=== PATIENT | male | born 1980 | race Hispanic/Latino ===

== ENCOUNTER 2017-12-25 13:42 | Inpatient (IN) | payer OTHER ==
[~2017-12-25] VITALS: Ht 182.9 cm; Wt 93.5 kg
[2017-12-25 14:27] LABS: BASOPHILS % 0.3 % (0.0-1.0); EOSINOPHILS # (AUTO) 0.1 (0.0-0.4); EOSINOPHILS % 0.8 % (0.0-6.0); HEMATOCRIT 44.1 % (38.2-49.6); HEMOGLOBIN 15.2 g/dL (14.0-18.0); LYMPHOCYTES # (AUTO) 1.9 (1.0-3.2); LYMPHOCYTES % 16.8 % (18.0-39.1); MEAN CORPUSCULAR HEMOGLOBIN 29.5 pg (28-32); MEAN CORPUSCULAR HGB CONC 34.5 g/dL (31-35); MEAN CORPUSCULAR VOLUME 85.5 fL (81-99); MONOCYTES # (AUTO) 0.7 (0.2-0.8); MONOCYTES % 6.4 % (4.4-11.3); NEUTROPHILS # (AUTO) 8.7 (2.1-6.9); NEUTROPHILS % 75.3 % (38.7-80.0); PLATELET COUNT 244 x10e3/uL (140-360); RED BLOOD COUNT 5.16 x10e6/uL (4.3-5.7); RED CELL DISTRIBUTION WIDTH 13.2 % (11.7-14.4)
[2017-12-25 14:31] LABS: INR 1.02; PARTIAL THROMBOPLASTIN TIME 27.3 seconds (23.8-35.5); PROTHROMBIN TIME 12.6 seconds (11.9-14.5)
[2017-12-25 14:38] LABS: ALANINE AMINOTRANSFERASE 24 IU/L (0-55); ALBUMIN 3.9 g/dL (3.5-5.0); ALBUMIN/GLOBULIN RATIO 1.1 (0.8-2.0); ALKALINE PHOSPHATASE 61 IU/L (40-150); ANION GAP 12.8 mmol/L (8-16); BLOOD UREA NITROGEN 15 mg/dL (7-26); BUN/CREATININE RATIO 12 (6-25); CALCIUM 9.5 mg/dL (8.4-10.2); CARBON DIOXIDE 26 mmol/L (22-29); CHLORIDE 105 mmol/L (98-107); CREATINE KINASE 1161 IU/L (30-200); CREATININE, SERUM 1.21 mg/dL (0.72-1.25); EST GLOMERULAR FILTRATION RATE > 60 ML/MIN (60-); GLUCOSE 112 mg/dL (74-118); POTASSIUM 3.8 mmol/L (3.5-5.1); SODIUM 140 mmol/L (136-145)
--- NOTE | 2017-12-25 15:21 | Diagnostic Imaging Report ---
PROCEDURE: A single AP view of the chest. COMPARISON: None. INDICATIONS: CHEST PAIN, HIGH BLOOD PRESSURE, DIZZINESS FINDINGS: Lines/tubes: None. Lungs: The lungs are well inflated and clear. There is no evidence of pneumonia or pulmonary edema. Pleura: There is no pleural effusion or pneumothorax. Heart and mediastinum: The heart and the mediastinum are unremarkable. Bones: No acute bony abnormality. IMPRESSION: 1. No acute cardiopulmonary disease. Wagner Hebert M.D. Dictated by: Wagner Hebert M.D. on 12/25/2017 at 15:25 Electronically approved by: Wagner Hebert M.D. on 12/25/2017 at 15:25
[2017-12-25] MEDS ORDERED: SODIUM CHLORIDE 0.9% 1000ML 1,000 ML IV STA ×2 (15:30→16:20)
[2017-12-25] MEDS ORDERED: KETOROLAC TROMETHAMINE 30 MG/ML VIAL IV STA (15:30)
[2017-12-25] MEDS ORDERED: METOPROLOL SUCCINATE 50 MG TAB XL PO STA (15:42)
--- NOTE | 2017-12-25 16:14 | Diagnostic Imaging Report ---
History: Headache Comparison studies: None Technique: Axial images were obtained from the skull base to the vertex. Coronal and sagittal reconstructions obtained from the axial data. Findings: Scalp/skull: No abnormalities. No fractures, blastic or lytic lesions. Extra-axial spaces: No masses. No fluid collections. Brain sulci: Appropriate for age. Ventricles: Normal in size and configuration. No hydrocephalus. Parenchyma: No abnormal densities. No masses, hemorrhage, acute or chronic cortical vascular insults. Sellar/suprasellar region: No abnormalities Craniocervical junction: Patent foramen magnum. No Chiari one malformation. Incidental focal mucosal thickening in the left maxillary sinus. IMPRESSION: No intracranial abnormalities. Signed by: Dr. Poncho Darling M.D. on 12/25/2017 4:10 PM
[2017-12-25 16:15] LABS: BILIRUBIN,URINE NEGATIVE (NEGATIVE); CLARITY,URINE CLEAR (CLEAR); COLOR,URINE YELLOW (YELLOW); KETONES,URINE NEGATIVE (NEGATIVE); LEUKOCYTE ESTERASE ,URINE NEGATIVE (NEGATIVE); NITRITE,URINE NEGATIVE (NEGATIVE); PROTEIN,URINE DIPSTICK NEGATIVE (NEGATIVE); URINE UROBILINOGEN 0.2 mg/dL (0.2 - 1)
[2017-12-25 16:19] LABS: PHENCYCLIDINE SCREEN,URINE NEGATIVE (NEGATIVE)
[2017-12-25 16:20] LABS: AMPHETAMINES SCREEN,URINE NEGATIVE (NEGATIVE); BENZODIAZEPINES SCREEN,URINE NEGATIVE (NEGATIVE)
[2017-12-25] MEDS ORDERED: HYDROCODONE/APAP 10MG-325MG TAB PO STA (17:57)
[2017-12-25] MEDS ORDERED: CLONIDINE HCL 0.1 MG TAB PO STA (17:57)
[2017-12-25] MEDS ORDERED: METOPROLOL TART50 MG PO (18:10)
[2017-12-25] MEDS ORDERED: HYDROMORPHONE 20MG/ NS 100ML IV STA (19:04)
[2017-12-25] MEDS ORDERED: HYDROMORPHONE 1MG/1ML INJ IV SCH (19:15)
[2017-12-25] MEDS ORDERED: ONDANSETRON HCL INJ 2 MG/ML VIAL IV PRN (19:15)
[2017-12-25] MEDS ORDERED: ASPIRIN 81 MG CHEW TAB PO ONE (19:15)
[2017-12-25 19:47] LABS: CREATINE KINASE 811 IU/L (30-200)
[2017-12-25] MEDS: HYDRALAZINE HCL 20 MG/ML VIAL IV PRN (20:15)
[2017-12-25] MEDS: HYDROMORPHONE 1MG/1ML INJ IV PRN (20:41)
[2017-12-25 21:22] VITALS: BP 148/104
[2017-12-25] MEDS: SODIUM CHLORIDE 0.9% 1000ML 1,000 ML IV SCH (21:56)
[2017-12-25 21:58] VITALS: BP 144/103
[2017-12-25] MEDS ORDERED: ACETAMINOPHEN 325 MG TAB PO PRN (22:15)
[2017-12-25 22:43] VITALS: BP 144/103
[2017-12-26] MEDS: SODIUM CHLORIDE 0.9% 1000ML 1,000 ML IV SCH ×3 (03:45→12:04)
[2017-12-26 04:00] VITALS: BP 128/86
[2017-12-26 04:08] LABS: CREATINE KINASE 628 IU/L (30-200)
[2017-12-26 05:47] LABS: BASOPHILS % 0.4 % (0.0-1.0); EOSINOPHILS # (AUTO) 0.2 (0.0-0.4); EOSINOPHILS % 1.5 % (0.0-6.0); LYMPHOCYTES # (AUTO) 2.1 (1.0-3.2); LYMPHOCYTES % 20.9 % (18.0-39.1); MEAN CORPUSCULAR HEMOGLOBIN 28.9 pg (28-32); MEAN CORPUSCULAR HGB CONC 33.3 g/dL (31-35); MEAN CORPUSCULAR VOLUME 86.8 fL (81-99); MONOCYTES # (AUTO) 0.7 (0.2-0.8); MONOCYTES % 6.9 % (4.4-11.3); NEUTROPHILS % 69.8 % (38.7-80.0); PLATELET COUNT 211 x10e3/uL (140-360); RED BLOOD COUNT 4.84 x10e6/uL (4.3-5.7); RED CELL DISTRIBUTION WIDTH 13.6 % (11.7-14.4)
[2017-12-26 06:12] LABS: ALANINE AMINOTRANSFERASE 17 IU/L (0-55); ALBUMIN 3.2 g/dL (3.5-5.0); ALBUMIN/GLOBULIN RATIO 1.1 (0.8-2.0); ALKALINE PHOSPHATASE 48 IU/L (40-150); BLOOD UREA NITROGEN 14 mg/dL (7-26); BUN/CREATININE RATIO 17 (6-25); CALCIUM 8.8 mg/dL (8.4-10.2); CARBON DIOXIDE 23 mmol/L (22-29); CHLORIDE 109 mmol/L (98-107); CREATININE, SERUM 0.84 mg/dL (0.72-1.25); EST GLOMERULAR FILTRATION RATE > 60 ML/MIN (60-); GLUCOSE 101 mg/dL (74-118); SODIUM 138 mmol/L (136-145)
[2017-12-26 07:13] VITALS: BP 148/104
[2017-12-26] MEDS: HYDROMORPHONE 1MG/1ML INJ IV PRN ×4 (07:38→16:41)
[2017-12-26 08:13] VITALS: BP 148/104
[2017-12-26] MEDS: METOPROLOL TARTRATE 50 MG TAB PO SCH ×2 (08:16→16:31)
[2017-12-26 09:29] LABS: CHOL/HDL RATIO 3.4 (3.9-4.7)
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
--- NOTE | 2017-12-26 11:41 | Diagnostic Imaging Report ---
PROCEDURE: CT CHEST WITHOUT CONTRAST CT scan of the chest WITHOUT intravenous contrast, using standard protocol. TECHNIQUE: The chest was scanned utilizing a multidetector helical scanner from the apex to the level of the adrenal glands. No IV contrast was administered because of referring physician request. Coronal and sagittal multiplanar reformations were obtained. COMPARISON: Chest x-ray 12/25/2017. INDICATIONS: SHORT OF BREATH, CHEST PAIN FINDINGS: Lines/tubes: None. Lungs and Airways: Trace subsegmental atelectasis in the dependent portion of the right lower lobe. The lungs and airways are otherwise unremarkable. No consolidation, fibrotic change, or bronchiectasis. Trachea, mainstem bronchi, and central lobar and segmental bronchi are patent, without filling defect. Pleura: No pleural effusion or pneumothorax. Heart and mediastinum: The visualized portions of the thyroid gland show no discrete nodule. There is no ectasia or aneurysmal dilatation of the thoracic aorta. Incidental note of a common origin of the innominate and left common carotid artery from the aortic arch. Main pulmonary artery is of normal caliber. No axillary, hilar, or mediastinal lymphadenopathy. No pericardial effusion. Normal heart size. Soft tissues: No focal soft tissue abnormalities. Abdomen: Visualized portions of the liver, gallbladder, spleen, pancreas, adrenals, and kidneys show no discrete abnormality. Bones: No osseous destructive lesions. IMPRESSION: Subsegmental atelectasis in the right lower lobe. Otherwise unremarkable noncontrast chest CT. Dictated by: Ad Vickers M.D. on 12/26/2017 at 11:45 Electronically approved by: Ad Vickers M.D. on 12/26/2017 at 11:45
[2017-12-26 12:10] LABS: CREATINE KINASE 591 IU/L (30-200)
[2017-12-26] MEDS ORDERED: METHYLPREDNISOLONE SOD SUCC 125 MG/2ML VIAL IV ONE (12:30)
[2017-12-26] MEDS ORDERED: PROMETHAZINE 25MG/ NS 50ML (IV) IV ONE (12:30)
[2017-12-26] MEDS ORDERED: VALPROATE SOD INJ 500 MG in SODIUM CHLORIDE 0.9% 100 ML 100 ML IV SCH (12:30)
[2017-12-26 12:57] VITALS: BP 157/111
--- NOTE | 2017-12-26 14:07 | Consultation ---
DATE OF CONSULTATION: December 26, 2017 NEUROLOGY CONSULTATION HISTORY OF PRESENT ILLNESS: Mr. Molina is a 37-year-old, [id number] man with past medical history significant for hypertension and occasional migraines who presented to the emergency center at [facility] on December 25, 2017, with multiple symptoms, including: Headache, blurred vision affecting the right eye with black spots, and numbness of the left arm. Mr. Molina describes his headache as follows: The pain is located behind the right eye, across the forehead, and near the occiput. The pain is described as combination of pressure and throbbing and is rated 10 out of 10. Associated with the headache are photophobia, dizziness which is further described as lightheadedness, mild confusion which is further described as difficulty with concentration, blurred vision affecting the right eye with black spots, and numbness over the left arm. Mr. Molina reports experiencing similar headaches in the past, especially with elevated blood pressures. The patient does endorse a history of occasional migraines not associated with elevations in blood pressure. The patient has a sister who has migraines as well. As stated above, the patient presented to the emergency center at [facility] on December 25, 2017, with the above-described symptoms as well as chest pain, low back pain, and elevated blood pressure. Upon arrival in the emergency center, the patient was afebrile with a blood pressure of 183/132 mmHg and pulse of 103 beats per minute. His neurological examination is documented as follows: Oriented times 3. No motor deficits. A CT of the brain without contrast was performed and did not show evidence of recent large territorial ischemia or hemorrhage. Mr. Molina was admitted to [facility] under observation status for further evaluation and treatment of symptoms. REVIEW OF SYSTEMS: Chest pain, confusion, blurred vision affecting the right eye, low back pain, headache, photophobia, dizziness. Otherwise, a 12-point review of systems is negative. 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 PAST SURGICAL HISTORY: Resection of a Winchester cyst behind the right knee. PAST HOSPITALIZATIONS: Surgeries/procedures as listed, hospitalized for elevations in blood pressure 3 times. FAMILY HISTORY: The patient's paternal and maternal grandparents are . Their medical histories are unknown. The patient's father is from colon cancer. Mr. Molina' mother is alive. She has high blood pressure and diabetes mellitus. The patient has 4 siblings, all of whom are alive. One sister had gestational diabetes mellitus. A 2nd sister has migraines. A brother has diabetes mellitus. The patient has 2 daughters and 1 son. All of his children are alive and healthy. SOCIAL HISTORY: Mr. Molina is legally from his . He graduated high school and attended some college. 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 Patient reports prior history of tobacco use, but quit smoking cigarettes approximately 5 years ago. The patient will drink an occasional whiskey or 2 beers. The patient does report a history of marijuana use. He stopped smoking marijuana approximately 2 to 3 months ago because his employer performs random drug testing. HOME MEDICATIONS: Metoprolol tartrate 50 mg by mouth daily. ALLERGIES: MORPHINE CAUSES NAUSEA. NO KNOWN FOOD ALLERGIES. NO KNOWN ALLERGY TO LATEX. NO KNOWN ALLERGIES TO IODINE OR OTHER CONTRAST MATERIALS. PHYSICAL EXAMINATION VITAL SIGNS: Height 72 inches, weight 205 pounds, BMI 27.8 kg per meter squared. Blood pressure 148/104 mmHg. Pulse 58 beats per minute. Respiratory rate 18 breaths per minute. Oxygen saturation 97% on room air. GENERAL: Patient is awake and alert, does not appear distressed. HEENT: Normocephalic, atraumatic. Pupils are equal, round and reactive to light. Moist mucous membranes. NECK: Supple. No appreciable thyromegaly. No appreciable carotid bruits. CARDIOVASCULAR: S1, S2, regular rate and rhythm. No murmurs, rubs or gallops. RESPIRATORY: Clear to auscultation bilaterally. No wheezes, rhonchi or rales. EXTREMITIES: The skin is warm and dry. No clubbing, cyanosis, or edema. The posterior tibial and dorsalis pedis pulses are 2+ and symmetric. SKIN: No rashes or lesions. NEUROLOGIC EXAMINATION MEMORY/ATTENTION: The patient is awake and alert, oriented to person, place, time and situation. CRANIAL NERVES: Cranial nerve I: Not tested. Cranial nerves II, III, IV, and : Pupils are equal and round, react briskly to light (from 4 mm to 2 mm). Extraocular movements intact. No nystagmus. Cranial nerve V: Sensation to light touch and pinprick is intact in the bilateral V1 through V3 distributions. Strength of the temporalis and masseter muscles is within normal limits. Cranial nerve VII: The face is symmetric as are all facial movements. Strength is within normal limits. Cranial nerve VIII: Hearing is intact to finger rub bilaterally. Cranial nerves IX and X: The soft palate elevates equally and symmetrically. Cranial nerve XI: Normal strength of the bilateral sternocleidomastoid and trapezius muscles. Cranial nerve XII: The tongue protrudes midline and moves symmetrically from side to side. STRENGTH: Bulk is normal. Strength is 5/5 in the bilateral deltoids, biceps, triceps, wrist flexors and extensors, finger flexors and extensors, intrinsic hand muscles, hip flexors, knee flexors and extensors, ankle dorsiflexion and plantar flexion, and intrinsic foot muscles. Tone is normal. DTRs: Deep tendon reflexes are 1+ and symmetric at the triceps, biceps, brachioradialis, patellas and Achilles. Plantar responses are flexor bilaterally. SENSATION: Sensation is intact to light touch and pinprick in both arms and both legs. CEREBELLAR: Qjttld-wulo-frtuzw and heel-david movements are intact without dysmetria or other impairment. GAIT: Deferred. SPEECH: Spontaneous speech is normal without appreciable dysarthria or aphasia. Repetition is intact. INVOLUNTARY MOVEMENTS: None. PRONATOR DRIFT: None. LABORATORY DATA: Sodium 138, potassium 4.0, chloride 109, carbon dioxide 23, anion gap 10.0. BUN 14, creatinine 0.84, estimated GFR greater than 60, NBN-ok-zfuozihcfd ratio 17. Glucose 101, calcium 8.8. Total bilirubin 0.5, AST 18, ALT 17, alkaline phosphatase 48. Total protein 6.0, albumin 3.2, globulin 2.8, dfivlgg-zi-ttnhxwfh ratio 1.1. Creatinine kinase 1161, 811, 628, 591. CK-MB 1.50, 1.10, 1.00, 1.10. Troponin I less than 0.001, less than 0.001, less than 0.001, less than 0.001. Total cholesterol 131,triglycerides 104, LDL 71, HDL 39. The CBC with differential and platelets reveals a white blood cell count of 10.08 with a normal differential. Hemoglobin and hematocrit are 14.0 and 42.0, respectively. The platelet count is 211. PT 12.6, INR 1.02, PTT 27.3. D-dimer quantitative 255. Urinalysis is unremarkable. Urine drug screen is negative. DIAGNOSTIC STUDIES 1. Chest x-ray, 12/25/2017: No acute cardiopulmonary disease. 2. CT of the brain without contrast, 12/25/2017: On my review, there is no evidence of recent large territorial ischemia, hemorrhage, mass, or mass effect. Cerebral volumes are appropriate for age. 3. Chest CT, 12/26/2017: Subsegmental atelectasis in the right lower lobe. Otherwise, unremarkable noncontrast chest CT. ASSESSMENT AND PLAN: Mr. Molina is a 37-year-old, [id number]-wwhp-dbcyywdm man with past medical history significant for hypertension and occasional migraines, admitted to [facility] on December 25, 2017, with multiple symptoms, including: Severe headache with vascular features, blurred vision affecting the right eye with dark spots, and numbness of the left arm. At present, the patient's neurological examination is nonfocal. His laboratory data and other diagnostic studies have been reviewed and are documented above. Based on description of symptoms provided by the patient, I strongly suspect the patient is experiencing a complex migraine with status migrainosus. RECOMMENDATIONS 1. MRI of the brain without contrast. 2. Promethazine 25 mg IV once. 3. Methylprednisolone 125 mg IV once. 4. Valproate 500 mg IV once. 5. These 3 medications, when given in combination, are often an effective treatment for status migrainosus. All 3 medications may be given again in 6 hours if needed. 6. The patient reports a prior history of cerebral artery aneurysm with the aneurysm reportedly being located near the right eye. An MRA of the brain without contrast will be ordered for further evaluation. 7. Defer treatment of the remaining medical comorbidities to the primary and other services. Thank you for this consultation. I will continue to follow this patient while he remains in the hospital. Time spent: 50 minutes. Job#: [id number] RUDDY MURGUIA
[2017-12-26] MEDS: AMLODIPINE BESYLATE 5 MG TAB PO SCH ×2 (14:39→16:32)
[2017-12-26] MEDS: VALPROATE SOD INJ 500 MG in SODIUM CHLORIDE 0.9% 100 ML 100 ML IV SCH (15:19)
[2017-12-26 16:38] VITALS: BP 161/110
--- NOTE | 2017-12-26 16:58 | Diagnostic Imaging Report ---
Exams: Brain and intracranial MRA without IV contrast History: 37-year-old male with right eye vision loss and headaches Comparison studies: Head CT, 12/25/2017 Technique: Brain: Pre-contrast: Sagittal T2; axial T2, T1-IR, MPGR, DWI, axial and coronal T2 flair 3-D etyl-by-qbhqra intracranial MRA with sagittal, coronal and 3-D MIP reformats. Intravenous contrast: None Findings: Brain: Scalp: No abnormal signal. No masses. Bone marrow: Normal in signal intensity. Brain sulci: Normal. Ventricles: Normal in size. No hydrocephalus. Extra axial spaces: No mass, no fluid collection. Parenchyma: No abnormal signal intensities. No masses, hemorrhage, acute or chronic vascular insults. Suprasellar region: Mildly expanded, mostly CSF filled sella. Craniocervical junction: No abnormalities. Patent foramen magnum. No Chiari one malformation Vessels: Normal flow-voids in the arteries and sinuses. Incidental: * T2 hyperintense mucosal thickening in the maxillary sinuses. Small nonspecific secretions and left max a sinus could be correlated for acute sinusitis. * Tortuosity of the optic nerve intraorbital segments bilaterally with questionable mild flattening of the posterior sclera near the optic nerve sheath insertions. Intracranial MRA: Internal carotid arteries: Patent, no flow abnormalities. Anterior cervical arteries: Patent, no flow abnormalities in the A1 and proximal A2 segments. Middle cerebral arteries: Patent, no flow abnormalities in the M1 and included M2 segments. Vertebral arteries: Patent, no flow abnormalities in the included segments. Basilar artery: Patent, no flow abnormalities. Posterior cerebral artery: Patent, no abnormalities. Anatomical variants: Acom: Patent. Pcom: Patent bilaterally. Vertebral arteries:Codominant IMPRESSION: Brain MRI: 1. No acute intracranial abnormality. 2. Partially empty sella with bilateral optic nerve sheath tortuosity. These findings can be seen with idiopathic intracranial hypertension in the appropriate clinical setting. Correlation with lumbar puncture and CSF opening pressure could further evaluate. 3. Incidental inflammatory changes in the left maxillary sinus. Intracranial MRA: No abnormalities. This preliminary report was completed by the neuroradiology fellow Dr. Gene Manning. Signed by: Dr. Ad Mart M.D. on 12/26/2017 5:33 PM
--- NOTE | 2017-12-26 17:36 | Diagnostic Imaging Report ---
CORRECTION Corrected on: 12/26/2017; Dictated by: Jose Daniel Landrum M.D. on 12/26/2017 at 17:42 Electronically approved by: Jose Daniel Landrum M.D. on 12/26/2017 at 17:42 PROCEDURE: RENAL DOPPLER ULTRASOUND COMPARISON:None. INDICATIONS:Hypertension FINDINGS:The Multiple sagittal and axial images of the right and left kidneys were obtained. RIGHT KIDNEY: The right kidney measures 11.2 cm. The cortical thickness is 1.9 cm. The right kidney has normal echogenicity. There are no masses, hydronephrosis or calculi. The right main renal artery PSV is 41.8, 44.4, 41.8 and 37.8 cm/sec at the ostium, proximal, mid, and distal segments, respectively. The highest right segmental artery PSV is 34.1, 37.8 and 40.7 cm/sec at the superior, mid, and inferior aspects, respectively. . LEFT KIDNEY: The left kidney measures 11.1 cm. The cortical thickness is 2.2 cm. The left kidney has normal echogenicity. There are no masses, hydronephrosis or calculi. The left main renal artery PSV is 50.1, 48.9, 41.1 and 52.6 cm/sec at the ostium, proximal, mid, and distal segments, respectively. The highest left segmental artery PSV is 56.8, 50.1 and 45.8 cm/sec at the superior, mid, and inferior aspects, respectively. The abdominal aorta PSV is 70.2, 73.9 and 83.0 cm/sec at the proximal, celiac/SMA, and distal aspects, respectively. The right renal artery/aorta ratio is 0.5. The left renal artery/aorta ratio is 0.6. The right and left renal veins are patent. IVC is patent. The bladder shows no focal lesions. Bilateral ureteral jets are identified. A small amount of debris is noted in the dependent portion of the bladder CONCLUSION: 1. Unremarkable renal ultrasound. 2. No sonographic evidence for renal artery stenosis. 3. Small amount of debris noted in the dependent portion of the bladder. Correlate with urinalysis. Jose Daniel Landrum M.D. Dictated by: Jose Daniel Landrum M.D. on 12/26/2017 at 17:39 Electronically approved by: Jose Daniel Landrum M.D. on 12/26/2017 at 17:39
--- NOTE | 2017-12-26 17:37 | Diagnostic Imaging Report ---
PROCEDURE:US RETROPERITONEAL ( KIDNEY ). COMPARISON:None. INDICATIONS:Hypertension CONCLUSION: Please see previously dictated report under renal Doppler performed. Same date. Jose Daniel Landrum M.D. Dictated by: Jose Daniel Landrum M.D. on 12/26/2017 at 17:40 Electronically approved by: Jose Daniel Landrum M.D. on 12/26/2017 at 17:40
[2017-12-26 20:04] VITALS: BP 151/95
[2017-12-27] VITALS (8 sets, daily range): BP systolic 143–175; BP diastolic 95–115
[2017-12-27] MEDS: SODIUM CHLORIDE 0.9% 1000ML 1,000 ML IV SCH ×5 (00:46→23:32)
[2017-12-27] MEDS: VALPROATE SOD INJ 500 MG in SODIUM CHLORIDE 0.9% 100 ML 100 ML IV SCH ×3 (03:30→23:50)
[2017-12-27 06:18] LABS: BASOPHILS % 0.1 % (0.0-1.0); HEMATOCRIT 46.6 % (38.2-49.6); LYMPHOCYTES # (AUTO) 1.2 (1.0-3.2); LYMPHOCYTES % 6.4 % (18.0-39.1); MEAN CORPUSCULAR HEMOGLOBIN 29.5 pg (28-32); MEAN CORPUSCULAR HGB CONC 34.3 g/dL (31-35); MEAN CORPUSCULAR VOLUME 85.8 fL (81-99); MONOCYTES # (AUTO) 0.4 (0.2-0.8); MONOCYTES % 2.2 % (4.4-11.3); NEUTROPHILS % 90.8 % (38.7-80.0); PLATELET COUNT 260 x10e3/uL (140-360); RED BLOOD COUNT 5.43 x10e6/uL (4.3-5.7); RED CELL DISTRIBUTION WIDTH 13.2 % (11.7-14.4)
[2017-12-27 07:04] LABS: ANION GAP 12.5 mmol/L (8-16); BLOOD UREA NITROGEN 14 mg/dL (7-26); BUN/CREATININE RATIO 14 (6-25); CALCIUM 9.9 mg/dL (8.4-10.2); CARBON DIOXIDE 25 mmol/L (22-29); CHLORIDE 106 mmol/L (98-107); CREATININE, SERUM 0.98 mg/dL (0.72-1.25); EST GLOMERULAR FILTRATION RATE > 60 ML/MIN (60-); GLUCOSE 130 mg/dL (74-118); POTASSIUM 4.5 mmol/L (3.5-5.1); SODIUM 139 mmol/L (136-145)
[2017-12-27] MEDS: METOPROLOL TARTRATE 50 MG TAB PO SCH (08:45)
[2017-12-27] MEDS: HYDROMORPHONE 1MG/1ML INJ IV PRN ×3 (08:46→23:50)
[2017-12-27] MEDS: AMLODIPINE BESYLATE 5 MG TAB PO SCH (08:46)
[2017-12-27] MEDS: SPIRONOLACTONE 25 MG TAB PO SCH (13:34)
[2017-12-27] MEDS: HYDROCHLOROTHIAZIDE 25 MG TAB PO SCH (13:34)
[2017-12-27] MEDS: LISINOPRIL 10 MG TAB PO SCH ×2 (13:55→17:54)
[2017-12-27] MEDS: LEVOFLOXACIN 500MG/D5W 100ML 100 ML IV SCH (13:55)
--- NOTE | 2017-12-27 15:55 | Diagnostic Imaging Report ---
PROCEDURE:X-RAY UNILATERAL RIBS WITH CHEST X-RAY COMPARISON:Chest CT 12/26/2017, chest radiograph 12/25/2017 INDICATIONS:LEFT RIB PAIN FOR FEW DAYS, NO TRAUMA FINDINGS: BONES: Normal mineralization. No acute fracture or dislocation. Joint spaces are within normal limits. SOFT TISSUES: Negative. OTHER: Lungs are clear. No pleural effusions or pneumothorax. Cardiac mediastinal silhouette is within normal limits. CONCLUSION: No acute osseous or cardiopulmonary abnormalities. Dictated by: Landon Nunez M.D. on 12/27/2017 at 15:58 Electronically approved by: Landon Nunez M.D. on 12/27/2017 at 15:58
[2017-12-27] MEDS ORDERED: METOPROLOL SUCCINATE 50 MG TAB XL PO SCH ×2 (17:00→21:00)
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
[2017-12-27] MEDS: PROMETHAZINE 25MG/ NS 50ML (IV) IV SCH ×2 (17:53→23:50)
[2017-12-27] MEDS: METHYLPREDNISOLONE SOD SUCC 125 MG/2ML VIAL IV SCH ×2 (17:54→23:50)
[2017-12-28] VITALS (9 sets, daily range): BP systolic 142–191; BP diastolic 96–131
[2017-12-28] MEDS: SODIUM CHLORIDE 0.9% 1000ML 1,000 ML IV SCH ×2 (04:21→13:57)
[2017-12-28] MEDS: METOPROLOL SUCCINATE 50 MG TAB XL PO SCH ×3 (05:43→21:14)
[2017-12-28] MEDS: HYDROCHLOROTHIAZIDE 25 MG TAB PO SCH (08:56)
[2017-12-28] MEDS: SPIRONOLACTONE 25 MG TAB PO SCH (08:56)
[2017-12-28] MEDS: LISINOPRIL 10 MG TAB PO SCH ×2 (08:57→17:08)
[2017-12-28] MEDS: HYDROMORPHONE 1MG/1ML INJ IV PRN ×2 (09:43→15:51)
[2017-12-28] MEDS: LEVOFLOXACIN 500MG/D5W 100ML 100 ML IV SCH (13:10)
[2017-12-28] MEDS ORDERED: CLONIDINE HCL 0.2 MG/24 HR 1 EA PATCH TOP SCH (14:45)
[2017-12-28] MEDS: KETOROLAC TROMETHAMINE 30 MG/ML VIAL IV SCH ×2 (18:42→23:26)
[2017-12-28] MEDS: METOCLOPRAMIDE HCL 10 MG/2ML VIAL IV SCH ×2 (18:42→23:26)
[2017-12-29] VITALS (7 sets, daily range): BP systolic 146–164; BP diastolic 94–121
[2017-12-29] MEDS: SODIUM CHLORIDE 0.9% 1000ML 1,000 ML IV SCH ×3 (03:59→18:32)
[2017-12-29] MEDS: HYDRALAZINE HCL 20 MG/ML VIAL IV PRN (04:53)
[2017-12-29] MEDS ORDERED: METOPROLOL SUCCINATE 50 MG TAB XL PO SCH (06:00)
[2017-12-29 06:22] LABS: BASOPHILS % 0.2 % (0.0-1.0); EOSINOPHILS % 0.1 % (0.0-6.0); HEMATOCRIT 47.3 % (38.2-49.6); LYMPHOCYTES # (AUTO) 2.7 (1.0-3.2); LYMPHOCYTES % 15.8 % (18.0-39.1); MEAN CORPUSCULAR HEMOGLOBIN 28.9 pg (28-32); MEAN CORPUSCULAR HGB CONC 33.8 g/dL (31-35); MEAN CORPUSCULAR VOLUME 85.4 fL (81-99); MONOCYTES # (AUTO) 1.1 (0.2-0.8); MONOCYTES % 6.6 % (4.4-11.3); NEUTROPHILS % 76.6 % (38.7-80.0); PLATELET COUNT 253 x10e3/uL (140-360); RED BLOOD COUNT 5.54 x10e6/uL (4.3-5.7); RED CELL DISTRIBUTION WIDTH 13.6 % (11.7-14.4)
[2017-12-29 06:54] LABS: ANION GAP 11.7 mmol/L (8-16); BLOOD UREA NITROGEN 23 mg/dL (7-26); BUN/CREATININE RATIO 25 (6-25); CALCIUM 9.3 mg/dL (8.4-10.2); CARBON DIOXIDE 28 mmol/L (22-29); CHLORIDE 102 mmol/L (98-107); CREATINE KINASE 46 IU/L (30-200); CREATININE, SERUM 0.91 mg/dL (0.72-1.25); EST GLOMERULAR FILTRATION RATE > 60 ML/MIN (60-); GLUCOSE 99 mg/dL (74-118); POTASSIUM 3.7 mmol/L (3.5-5.1); SODIUM 138 mmol/L (136-145)
[2017-12-29] MEDS: LISINOPRIL 10 MG TAB PO SCH ×2 (08:02→17:00)
[2017-12-29] MEDS: SPIRONOLACTONE 25 MG TAB PO SCH (08:02)
[2017-12-29] MEDS: HYDROCHLOROTHIAZIDE 25 MG TAB PO SCH (08:02)
[2017-12-29] MEDS: METOPROLOL SUCCINATE 50 MG TAB XL PO SCH ×2 (09:00→17:00)
[2017-12-29] MEDS: LEVOFLOXACIN 500MG/D5W 100ML 100 ML IV SCH (14:16)
[2017-12-29] MEDS ORDERED: HYDRALAZINE HCL 10 MG TAB PO ONE (20:30)
[2017-12-30 00:34] VITALS: BP 143/93
[2017-12-30 05:32] VITALS: BP 130/96
[2017-12-30 08:00] VITALS: BP 147/112
[2017-12-30] MEDS: METOPROLOL SUCCINATE 50 MG TAB XL PO SCH (08:19)
[2017-12-30] MEDS: HYDROCHLOROTHIAZIDE 25 MG TAB PO SCH (08:19)
[2017-12-30] MEDS: LISINOPRIL 10 MG TAB PO SCH (08:19)
[2017-12-30] MEDS: SPIRONOLACTONE 25 MG TAB PO SCH (08:19)
[2017-12-30 12:00] VITALS: BP 161/119
[2017-12-30] MEDS: HYDRALAZINE HCL 20 MG/ML VIAL IV PRN (12:00)
[2017-12-30] MEDS ORDERED: HYDRALAZINE HCL 25 MG TAB PO SCH (12:15)
[2017-12-30] MEDS ORDERED: HYDRALAZINE HCL25 MG PO (13:13)
[2017-12-30] MEDS ORDERED: SPIRONOLACTONE25 MG PO (13:14)
[2017-12-30] MEDS ORDERED: HYDROCHLOROTHIA25 MG PO (13:14)
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
--- NOTE | 2018-01-01 17:23 | Cardiology Report ---
DATE OF STUDY: December 29, 2017 NUCLEAR GATED MYOCARDIAL PERFUSION SCAN This is a 2-day protocol. The stress test is supervised by Dr. Eze Lopez, [facility] injecting 0.4 mg intravenously as stress agent. This test is performed. Myoview injected 11 mCi for resting protocol on December 28, 2017, and 33 mCi for stress protocol on December 29, 2017. I interpreted only the nuclear stress test. The stress test is performed by Dr. Eze Lopez. IMPRESSION: Mild left ventricular global hypokinesia with left ventricular ejection fraction 45% to 50%. No evidence of ischemia or scar noted. Job#: [id number] EV cc:EZE LOPEZ
== END 2017-12-30 13:51 | disposition home or self-care (01) | DRG 558 ==
LOC: ER 13:42 → ERHOLD 19:12 → MED/SURG2 21:23 → OBSVTOIN 12-27 17:29
PROVIDERS: ADMIT Internal Medicine Pulmonary Disease; ATTEND Internal Medicine Pulmonary Disease
DX: M62.82 Rhabdomyolysis (principal); I10 Essential (primary) hypertension; G43.909 Migraine, unspecified, not intractable, without status migrainosus; G44.89 Other headache syndrome
CPT/HCPCS: 36415; 70450; 70544; 70551; 71045; 71101; 71250; 76770; 78452; 80048; 80053; 80061; 80307; 81001; 82550; 82553; 84484; 85025; 85379; 85610; 85730; 93005; 93017; 93306; 93976; 96361; 96375; 99284; A9502; G0378; J0360; J1170; J1885; J1956; J2550; J2765; J2930; J7030